=== PATIENT | female | born 1980 | race Asian ===

== ENCOUNTER 2017-09-03 11:33 | Emergency (ER) | payer OTHER ==
[2017-09-03 11:46] VITALS: RESP 16
[2017-09-03 13:22] LABS: PLATELET COUNT 230 10^3/uL (150-400)
--- NOTE | 2017-09-03 13:35 | EDPHY ---
H & P Time Seen by Provider: 09/03/17 12:39 HPI/ROS: CHIEF COMPLAINT: Vaginal bleeding HISTORY OF PRESENT ILLNESS: 36-year-old female 7 weeks by dates presents with vaginal spotting. Onset of vaginal spotting yesterday. Has not soaked a pad; just notices blood when wipes after urination. Associated with mild suprapubic cramping. No alleviating or aggravating factors. No dizziness or weakness. No care yet. REVIEW OF SYSTEMS: Constitutional: No fever, no chills Eyes: No visual changes ENT: No sore throat Respiratory: No cough, no shortness of breath Cardiac: No chest pain Gastrointestinal: no vomiting Genitourinary: no dysuria Musculoskeletal: No leg pain or swelling Skin: No rash Neurological: No headache, no weakness Psychiatric: No depression Past Medical/Surgical History: Denies Social History: Mandarin speaking Smoking Status: Never smoked Physical Exam: General Appearance: Alert, pleasant Eyes: Pupils equal and round, no conjunctival pallor ENT, Mouth: Mucous membranes moist Neck: Normal inspection Respiratory: Lungs are clear to auscultation Cardiovascular: Regular rate and rhythm Gastrointestinal: Abdomen is soft and nontender Neurological: A&O, nonfocal, normal gait Skin: Warm and dry Extremities: Normal inspection Psychiatric: Mood and affect normal Constitutional: Initial Vital Signs Temperature (C) 37.2 C 09/03/17 11:43 Heart Rate 60 09/03/17 11:43 Respiratory Rate 16 09/03/17 11:43 Blood Pressure 118/72 09/03/17 11:43 O2 Sat (%) 96 09/03/17 11:43 O2 Delivery Mode Room Air Allergies/Adverse Reactions: No Known Allergies Allergy (Unverified 09/03/17 11:42) Home Medications: Medication Instructions Recorded NK [No Known Home Meds] 09/03/17 Medical Decision Making - Diagnostics Imaging Results: Imaging Impressions Obstetrics Ultrasound 09/03/17 12:39 Impression: 1. Single living intrauterine gestation with estimated gestational age of 6 weeks 1 day. 2. 2.7 cm subchorionic hemorrhage. Findings discussed with HERLINDA NAGY 09/03/2017 at 14:13. ED Course/Re-evaluation: This patient presents with a threatened miscarriage. Ultrasound discussed with the patient and her . Ultrasound reveals an IUP, 6 week 1 day gestation with an associated subchorionic hemorrhage. Blood type is A positive. No bleeding or cramping while in the emergency department. Abdomen remained soft and nontender. Will f/u OBGYN. Differential Diagnosis: Differential diagnosis includes though it is not limited to ectopic , ovarian cyst, ovarian torsion, PID, UTI, appendicitis. - Data Points Laboratory Results: Laboratory Results 09/03/17 13:04 09/03/17 09/03/17 09/03/17 13:04 13:04 13:04 WBC 7.34 10^3/uL 10^3/uL (3.80-9.50) RBC 4.44 10^6/uL 10^6/uL (4.18-5.33) Hgb 13.8 g/dL g/dL (12.6-16.3) Hct 40.3 % % (38.0-47.0) MCV 90.8 fL fL (81.5-99.8) MCH 31.1 pg pg (27.9-34.1) MCHC 34.2 g/dL g/dL (32.4-36.7) RDW 13.0 % % (11.5-15.2) Plt Count 230 10^3/uL 10^3/uL (150-400) MPV 10.0 fL fL (8.7-11.7) Neut % (Auto) 66.6 % % (39.3-74.2) Lymph % (Auto) 27.1 % % (15.0-45.0) [place] % (Auto) 4.4 % L % (4.5-13.0) Eos % (Auto) 1.1 % % (0.6-7.6) Baso % (Auto) 0.4 % % (0.3-1.7) Nucleat RBC Rel Count 0.0 % % (0.0-0.2) Absolute Neuts (auto) 4.89 10^3/uL 10^3/uL (1.70-6.50) Absolute Lymphs (auto) 1.99 10^3/uL 10^3/uL (1.00-3.00) Absolute Monos (auto) 0.32 10^3/uL 10^3/uL (0.30-0.80) Absolute Eos (auto) 0.08 10^3/uL 10^3/uL (0.03-0.40) Absolute Basos (auto) 0.03 10^3/uL 10^3/uL (0.02-0.10) Absolute Nucleated RBC 0.00 10^3/uL 10^3/uL (0-0.01) Immature Gran % 0.4 % % (0.0-1.1) Immature Gran # 0.03 10^3/uL 10^3/uL (0.00-0.10) Beta HCG, Quant 9536.60 mIU/mL H mIU/mL (0.00-4.83) Patient ABO/Rh A POSITIVE Departure - Departure Disposition: Home, Routine, Self-Care Clinical Impression: Threatened miscarriage Condition: Good Instructions: Threatened Miscarriage (ED) Additional Instructions: Return for increasing bleeding, dizziness or any concerns. Referrals: Olga Rios MD [Medical Doctor] - As per Instructions (Call to make an appointment.)
[2017-09-03 14:58] VITALS: BP 120/84; PULSE 61; TEMP 98.1; O2SAT 97
== END 2017-09-03 14:45 | disposition home or self-care (01) ==
DX: O20.0 Threatened abortion (principal); Z3A.01 Less than 8 weeks gestation of pregnancy